=== PATIENT | male | born 1940 | race Caucasian/White ===

== ENCOUNTER 2023-11-29 14:21 | Emergency (ER) | payer MEDICARE, OTHER, SELFPAY ==
[2023-11-29 14:24] VITALS: BP 159/96
--- NOTE | 2023-11-29 15:01 | ED.GENMED ---
History of Present Illness
General
Chief Complaint: Eye Problems
Source: patient and spouse
Exam Limitations: none
Time Seen by Provider: 11/29/23 14:32
Nursing documentation reviewed up to this point in time: agreed with
Travel History
Have you had any contact with someone who has COVID-19?: No
Do you have any symptoms of coronavirus? Fever > 100 degrees, chills, cough, shortness of breath, sore throat, loss of taste or smell, muscle aches, or headache?: No
History of Present Illness
History of Present Illness:
83 yr old male presents to the ED for evaluation. Pt has history of htn, mi cardiac stents , reflux,hypothyroidism b/l cataract surgery, known right eye retinal occlusion. pt reports he was sent by Dr. Camacho of [facility] .
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 He is seen by her every 10 to 12 weeks for injections.
He reports that the past 2 weeks he has noticed that his right eyelid has been droopy and his vision has been slightly off from his right eye. He was sent to the ER for evaluation. At times he does see double . He denies any upper extremity
numbness Tingling weakness.. He does not Necessarily feel headache but does feel slight discomfort in the right side of his.
I did speak with admitting interviewer who was concerned about 3rd nerve palsy. She was unable to assess the response of his pupils because his pupils were already upon arriving to the ER.
Past History
Past History
ED Past Medical History: CAD, GERD and Other (Kidney stones)
ED Past Surgical History: Other
Social History
Tobacco: Non-smoker
Alcohol: None
Drug: None
Personal:
Living: with family
Employment: Retired
Family History
Family History: Diabetes
Phy Exam
General Physical Exam
General Presentation: no apparent distress
General age: appears stated age
General Skin: warm and dry
General Habitus: normal
General Mental: alert
General Hydration: appears well hydrated
Eye Exam
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
Able to obtain acuity?: Yes
Cardiovascular Exam
Cardiovascular Exam: regular rate/rhythm and normal peripheral pulses
Pulmonary Exam
Pulmonary Exam: lungs clear and no respiratory distress
Neurological Exam
Neurological Exam: alert, oriented x3, no motor deficits, no sensory deficits and speech normal
Musculoskeletal Exam
Musculoskeletal Exam: full ROM
Skin Exam
Skin Exam: normal color and warm/dry
Psychiatric Exam
Psychiatric Exam: normal mood/affect
Course
Orders/Labs/Results
Orders:
Orders
11/29/23 15:12
IV Insert/Care/Rem.- Treatment PRN
11/29/23 15:17
Visual Acuity- Treatment ONCE
11/29/23 15:26
MRI Brain [MR Brain Without Contrast] Urgent
Comment:
Reason For Exam: 3rd nerve palsy
OK for patient to be off Cardiac Monitoring for MRI: Yes
Recent pill cam endoscopy?: No
11/29/23 15:28
[place] [facility] [[place] [facility]] Urgent
Comment:
Reason For Exam: right eye 3rd palsy
OK for patient to be off Cardiac Monitoring for MRI: Yes
Recent pill cam endoscopy?: No
11/29/23 16:39
Complete Blood Count/With Diff Urgent
Comprehensive Metabolic Panel Urgent
Sed Rate [Erythrocyte Sed Rate] Urgent
11/29/23 17:42
Acetylcholine Receptor Bind Ab [S] Routine
TSH Reflex To Free T4 Routine
11/29/23 18:06
Pyridostigmine [Mestinon] 60 mg PO NOW STA
11/29/23 18:27
Vital Signs- Treatment ONCE
Frequency: Once
11/29/23 18:38
Add On- LAB Urgent
Tests Added?: tsh w/ reflexive t4 and thiamine
11/29/23 22:00
Pyridostigmine [Mestinon] 60 mg PO TID
Abnormal Lab Results
11/29/23
16:39
RBC 4.33 L 10^6/uL
(4.70-6.10)
MCH 33.3 H pg
(27.0-31.0)
Absolute Monos (auto) 0.8 H 10^3/uL
(0.1-0.6)
Lymphocytes % 16.3 L %
(20.5-51.1)
Monocytes % 9.6 H %
(1.7-9.3)
ESR 24 H mm/hour
(0-20)
BUN 29 H mg/dl
(9-20)
Creatinine 1.4 H mg/dL
(0.7-1.3)
Glucose 127 H mg/dl
(70-99)
11/29/23 16:39
11/29/23 16:39
Vital Signs
Initial and Last Documented VS:
Initial Vital Signs
Temp Pulse Resp BP Pulse Ox
98.0 F 76 16 159/96 98
11/29/23 14:24 11/29/23 14:24 11/29/23 14:24 11/29/23 14:24 11/29/23 14:24
Last Documented Vital Signs
Temp Pulse Resp BP Pulse Ox
98.0 F 76 16 148/75 96
11/29/23 14:24 11/29/23 14:24 11/29/23 14:24 11/29/23 18:00 11/29/23 18:15
Chemical Process Analyst consulted with Physician
Chemical Process Analyst consulted with physician?: Yes
Name of Physician Consulted: vinny
MDM/Problems Addressed
Differential Diagnosis Includes:
Not limited to aneurysm stroke
MDM/Problems Addressed:
83 yr .old male was sent to the ER for evaluation of palsy of his right eye. He was sent by his retina specialist. He does have no retinal occlusion but on exam he was found to have a palsy of his right eye. He also noted specifically right
eyelid drooping. No other abnormalities/neurological deficits on exam. Patient denies any headache. His speech is clear.patient has history of chronic I did speak with his extension service specialist who sent him in. She wanted to rule out
aneurysm. I spoke with neurology on-call Dr. Kwong, MRI recommended
MR of the [place] negative for high-grade stenosis or occlusion no evidence for cerebral aneurysm, brain MRI negative. Patient was eval by neurology who feels the patient likely has probable neuromuscular junction disorder. Patient to be
discharged home as per neurology with no driving to wear eye patch when awake follow-up with neurology in 1 week, Mestinon 60 mg 3 times a d. Patient's labs are at baseline.
All instructions reviewed with patient and spouse
*Radiology
Radiology exam reviewed: radiology read reviewed
*Pulse Oximetry
Patient hypoxic: no
*Critical Care Note
Total Time (30-74mins, 75-104mins- exclusive of procedures): Not Applicable
ED Attending Note
-
Portions of this chart may have been created with voice recognition software.� Occasional wrong word or��sound alike� substitutions may have occurred due to the inherent limitations of voice recognition software.
Discharge Plan
Departure
Patient Disposition: Home (Routine Discharge)
Date of Disposition: 11/29/23
Time of Disposition: 18:27
Patient with high blood pressure during this ER visit?: Yes
Condition: Fair
Covid-19: Not Applicable
Discharge Problem:
visual deficit
Instructions: BLOOD PRESSURE
Prescriptions:
New
pyridostigmine bromide [Mestinon] 60 mg tablet
60 mg PO TID Qty: 90 0RF
No Action
atorvastatin 40 MG tablet
80 mg PO QPM
aspirin 81 MG tablet,delayed release (DR/EC)
81 mg PO DAILY
losartan 25 MG tablet
25 mg PO DAILY
cholecalciferol (vitamin D3) 1,000 UNIT capsule
1,000 unit PO DAILY
fish oil-dha-epa 1 EACH capsule
2 ea PO DAILY
Lumigan 5 ML drops
1 drp BOTH EYES HS
ibuprofen [Advil Liqui-Gel] 200 MG capsule
200 mg PO Q6H PRN (Reason: MILD PAIN)
nitroglycerin 0.4 MG tablet, sublingual
0.4 mg sublingual [id number] PRN (Reason: chest pain)
brimonidine [Alphagan P] 1 DROP drops
1 drp BOTH EYES BID
PreserVision AREDS-2 1 EACH capsule
1 ea PO DAILY
levothyroxine [Synthroid] 150 mcg tablet
150 mcg PO DAILY
timolol maleate 0.5 % drops
1 drp BOTH EYES DAILY
hydrochlorothiazide 12.5 mg tablet
12.5 mg PO DAILY
GenTeal Tears Mild 0.1-0.3 % Drops
1 drp ophthalmic (eye) .8/D PRN (Reason: DRY EYES)
Rhopressa 0.02 % drops
1 drp BOTH EYES HS
clopidogrel 75 mg Tablet
75 mg PO DAILY Qty: 90 5RF
pantoprazole 40 mg Tablet,Delayed Release (Dr/Ec)
40 mg PO DAILY Qty: 90 5RF
metoprolol succinate 25 mg Tablet Extended Release 24 Hr
12.5 mg PO QPM Qty: 90 5RF
Referrals:
Susannah Kwong MD [Active] -
Parish Marcos MD [Family Provider] -
Activity Restrictions/Additional Instructions:
You were seen here today for visual deficit. As discussed please take Mestinon 60 mg 3 times daily. This medication was sent to pharmacy. no driving
use eye patch when awake. Please obtain medical records from ophthalmology office for neurology. Follow-up with neurology in 1 week
Return if any worsening of symptoms
Interventions
Interventions:
*Risk Screen - Suicide Last Done: 11/29/23 16:00
*General Assessment Last Done: 11/29/23 16:00
*Neglect/Abuse Screening Last Done: 11/29/23 16:00
*ED COVID-19 Vaccine History Last Done: 11/29/23 14:24
[2023-11-29 16:44] VITALS: BP 150/90
[2023-11-29 16:56] LABS: % Basophils 0.6 % (0-2); % Eosinophils 1.1 % (0-6); % Immature Granulocytes 0.4 % (0-0.5); % Lymphocytes 16.3 % (20.5-51.1); % Monocytes 9.6 % (1.7-9.3); Absolute Basophils 0.1 10^3/uL (0-0.2); Absolute Eosinophils 0.1 10^3/uL (0-0.7); Absolute Lymphocytes 1.3 10^3/uL (1.2-3.4); Absolute Monocytes 0.8 10^3/uL (0.1-0.6); Absolute Neutrophils 5.7 10^3/uL (1.4-6.5); Hematocrit 40.7 % (39.0-52.0); Hemoglobin 14.4 g/dL (13.0-18.0); Mean Corp Hgb Conc. 35.4 g/dL (33.0-37.0); Mean Corpuscular Hgb 33.3 pg (27.0-31.0); Mean Platelet Volume 9.6 fL (7.4-10.4); Nucleated Red Blood Cells % 0 % (-); Platelet Count 252 10^3/uL (130-400); Red Blood Cell Count 4.33 10^6/uL (4.70-6.10); Red Cell Dist. Width 13.1 % (11.5-14.5)
[2023-11-29 17:00] VITALS: BP 141/66
[2023-11-29 17:01] LABS: Erythrocyte Sed Rate 24 mm/hour (0-20)
[2023-11-29 17:07] LABS: ALT (SGPT) 23 U/L (0-50); AST (SGOT) 29 U/L (17-59); Albumin 4.4 g/dl (3.5-5.0); Alkaline Phosphatase 80 U/L (38-126); Blood Urea Nitrogen 29 mg/dl (9-20); Calcium 9.7 mg/dl (8.4-10.2); Carbon Dioxide 28 mmol/L (22-30); Chloride 102 mmol/L (98-107); Glucose 127 mg/dl (70-99); Potassium 4.5 mmol/L (3.5-5.1); Sodium 136 mmol/L (135-145); Total Protein 7.1 g/dl (6.3-8.2); eGFR 50.49
--- NOTE | 2023-11-29 17:20 | CON.NEURO ---
Consultation
Order
Date of Consultation: 11/29/23
Reason for Consult: Diplopia
CC: none
HPI: This is an 83-year-old man who presented to [facility] on 11/29/2023 with change in vision. According to the patient he developed painless binocular horizontal diplopia worse with left lateral gaze around 1 week ago. He states
that he has had right ptosis for 'long time'. No reports of dysarthria, dysphagia, dyspnea, facial numbness change in taste or vertigo.
ER VS: 159/96, 76, afebrile
Brain MRI�no acute infarcts
Head MRI�no evidence of aneurysms
Labs: Creatinine�1.4, glucose�124, normal WBC
PMH: 'Retinal occlusion ', CAD, HTN, DLP, hypothyroidism, glaucoma
PSH: Bilateral cataract surgery, eye stent
SH:former smoker, ; violinist
FH: No family history of tremor
All: Lisinopril, doxycycline,
ROS:Constitutional: Negative. Negative for chills, fever and unexpected weight change.
HENT: Negative for ear pain, hearing loss, tinnitus and trouble swallowing.
Eyes: Positive for impaired vision
Respiratory: Negative for cough, choking and shortness of breath.
Cardiovascular: Negative for chest pain, palpitations and leg swelling.
Gastrointestinal: Negative for abdominal pain and vomiting.
Endocrine: Negative. Negative for cold intolerance.
Genitourinary: Negative for dysuria, flank pain and urgency.
Musculoskeletal: Negative for back pain, gait problem, neck pain and neck stiffness.
Skin: Negative for rash.
Allergic/Immunologic: Negative. Negative for immunocompromised state.
Neurological: Positive for diplopia
Psychiatric/Behavioral: Negative for behavioral problems, confusion and hallucinations.
General: Well developed. In no acute distress.
Cardio: Regular rate and rhythm without murmur. Extremities are without cyanosis or edema.
Neuro:
Mental Status: Alert, oriented to person, place, and date. Normal attention and recall. Good fund of knowledge. Follows complex requests across the midline. Comprehension, naming, and repetition intact. Immediate and delayed recall 3/.
Cranial Nerves: .Pupils 6 mm, nonreactive(was dilatated earlier today at the move coordinator visit). EOMs full. Visual osorio full to confrontation. R ptosis(and eyelid edema). Horizontal diplopia at distance, on the left greater than right
lateral gaze. V1-V3 intact to light touch and pinprick bilaterally, symmetric. Face symmetric. Impaired hearing AU. The palate elevated well. SCMs and traps 5/5. Tongue midline. No dysarthria.
Motor: Normal bulk and tone. No pronator or arm drift. Strength 5/5 throughout. No clonus.
Reflexes: 2+ throughout the upper extremities and 2 +knees. Plantar responses flexor bilaterally.
Sensory: Reduced vibration at the toes
Coordination: Mild action hand tremor. No dysmetria
Gait: deferred
Assessment and Plan:
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
II. Distal symmetric polyneuropathy
III. HTN
-No driving
-Apply eye patch
-Please check TFTs, MG panel, thiamine, SPEP/IF
-Outpatient NCS/EMG(single-fiber EMG)
-Mestinon 60 mg 3 times daily
-Please obtain medical records from ophthalmology office
-Outpatient neurology follow-up in 1 week.
I personally reviewed all radiology and labs along with past medical records pertinent to current medical problems. Total time spent-60 minutes.
Thank you for allowing us to participate in the care of this patient. Please do not hesitate to contact us with any questions or concerns.
Subjective/Objective
Subjective Data
Date of Service: November 29, 2023
Objective Data
Vital Signs
Temp Pulse Resp BP Pulse Ox
36.7 C 76 16 159/96 98
11/29/23 14:24 02/15/24 14:24 11/29/23 14:24 11/29/23 14:24 11/29/23 14:24
Lab Results
11/29/23 16:39
11/29/23 16:39
Sodium 136 mmol/L (135-145) 11/29/23 16:39
Potassium 4.5 mmol/L (3.5-5.1) 11/29/23 16:39
BUN 29 mg/dl (9-20) H 11/29/23 16:39
Glucose 127 mg/dl (70-99) H 11/29/23 16:39
Calcium 9.7 mg/dl (8.4-10.2) 11/29/23 16:39
Patient Allergies
doxycycline Allergy (Verified 11/29/23 14:27)
Unknown
Medications
-
Home Medications
Medication Instructions Recorded
aspirin 81 mg tablet,delayed 81 mg PO DAILY Blood clot 03/08/14
release prevention/tx
atorvastatin 40 mg tablet 80 mg PO QPM High cholesterol 03/08/14
bimatoprost 0.01 % eye drops 1 drp BOTH EYES HS Eye condition 03/08/14
(Lumigan)
cholecalciferol (vitamin D3) 25 1,000 unit PO DAILY Supplement 03/08/14
mcg (1,000 unit) capsule
fish oil-dha-epa 1,200 mg-144 2 ea PO DAILY Supplement 03/08/14
mg-216 mg capsule
losartan 25 mg tablet 25 mg PO DAILY Blood pressure 03/08/14
brimonidine 0.15 % eye drops 1 drp BOTH EYES BID Eye condition 11/14/17
(Alphagan P)
ibuprofen 200 mg capsule (Advil 200 mg PO Q6H PRN MILD PAIN 11/14/17
Liqui-Gel)
nitroglycerin 0.4 mg sublingual 0.4 mg sublingual [id number] PRN 11/14/17
tablet chest pain
vit C 250 mg-vit E 90 mg-zinc 40 1 ea PO DAILY Supplement 11/14/17
mg-copper 1 [id number]
capsule (PreserVision AREDS-2)
dextran 70-hypromellose 0.1 %-0.3 1 drp ophthalmic (eye) .8/D PRN 08/03/22
% eye drops (GenTeal Tears Mild) DRY EYES
hydrochlorothiazide 12.5 mg tablet 12.5 mg PO DAILY Blood pressure 08/03/22
levothyroxine 150 mcg tablet 150 mcg PO DAILY Thyroid 08/03/22
(Synthroid)
netarsudil 0.02 % eye drops 1 drp BOTH EYES HS Eye condition 08/03/22
(Rhopressa)
timolol maleate 0.5 % eye drops 1 drp BOTH EYES DAILY Eye condition 08/03/22
clopidogrel 75 mg tablet 75 mg PO DAILY #90 tabs 08/04/22
metoprolol succinate 25 mg 12.5 mg PO QPM #90 tabs 08/04/22
tablet,extended release 24 hr
pantoprazole 40 mg tablet,delayed 40 mg PO DAILY #90 tabs 08/04/22
release
Vital Signs and Labs
-
Vital Signs and Labs:
Vital Signs
Temp Pulse Resp BP Pulse Ox
36.7 C 76 16 159/96 98
11/29/23 14:24 11/29/23 14:24 11/29/23 14:24 11/29/23 14:24 11/29/23 14:24
Lab Results
11/29/23 16:39
11/29/23 16:39
Sodium 136 mmol/L (135-145) 11/29/23 16:39
Potassium 4.5 mmol/L (3.5-5.1) 11/29/23 16:39
BUN 29 mg/dl (9-20) H 11/29/23 16:39
Glucose 127 mg/dl (70-99) H 11/29/23 16:39
Calcium 9.7 mg/dl (8.4-10.2) 11/29/23 16:39
Home Medications
-
Home Medications
aspirin 81 mg tablet,delayed release 81 mg PO DAILY Blood clot prevention/tx 03/08/14
atorvastatin 40 mg tablet 80 mg PO QPM High cholesterol 03/08/14
bimatoprost 0.01 % eye drops (Lumigan) 1 drp BOTH EYES HS Eye condition 03/08/14
cholecalciferol (vitamin D3) 25 mcg (1,000 unit) capsule 1,000 unit PO DAILY Supplement 03/08/14
fish oil-dha-epa 1,200 mg-144 mg-216 mg capsule 2 ea PO DAILY Supplement 03/08/14
losartan 25 mg tablet 25 mg PO DAILY Blood pressure 03/08/14
brimonidine 0.15 % eye drops (Alphagan P) 1 drp BOTH EYES BID Eye condition 11/14/17
ibuprofen 200 mg capsule (Advil Liqui-Gel) 200 mg PO Q6H PRN MILD PAIN 11/14/17
nitroglycerin 0.4 mg sublingual tablet 0.4 mg sublingual [id number] PRN chest pain 11/14/17
vit C 250 mg-vit E 90 mg-zinc 40 mg-copper 1 [id number] capsule (PreserVision AREDS-2) 1 ea PO DAILY Supplement 11/14/17
dextran 70-hypromellose 0.1 %-0.3 % eye drops (GenTeal Tears Mild) 1 drp ophthalmic (eye) .8/D PRN DRY EYES 08/03/22
hydrochlorothiazide 12.5 mg tablet 12.5 mg PO DAILY Blood pressure 08/03/22
levothyroxine 150 mcg tablet (Synthroid) 150 mcg PO DAILY Thyroid 08/03/22
netarsudil 0.02 % eye drops (Rhopressa) 1 drp BOTH EYES HS Eye condition 08/03/22
timolol maleate 0.5 % eye drops 1 drp BOTH EYES DAILY Eye condition 08/03/22
clopidogrel 75 mg tablet 75 mg PO DAILY #90 tabs 08/04/22
metoprolol succinate 25 mg tablet,extended release 24 hr 12.5 mg PO QPM #90 tabs 08/04/22
pantoprazole 40 mg tablet,delayed release 40 mg PO DAILY #90 tabs 08/04/22
Medications
-
Medications:
Generic Name Dose Route Start Last Admin
Trade Name Freq PRN Reason Stop Dose Admin
Pyridostigmine [place] 60 mg 11/29/23 22:00
Pyridostigmine 60 Mg Tablet PO 12/27/23 21:59
TID RICH
[2023-11-29 18:00] VITALS: BP 148/75
[2023-11-29] MEDS: MESTINON 60 MG PO (18:39)
[2023-11-29 18:50] LABS: TSH Reflex To Free T4 0.82 uIU/ml (0.47-4.68)
== END 2023-11-29 19:05 | disposition home or self-care (01) ==
LOC: EMR 14:21
PROVIDERS: Nurse Practitioner; EMERGENCY PHYSICIAN Emergency Medicine; FAMILY PHYSICIAN Family Medicine; OTHER PHYSICIAN Psychiatry & Neurology Neurology
DX: H53.40 Unspecified visual field defects (principal); I10 Essential (primary) hypertension
CPT/HCPCS: 99284; 70544; 70551; 80053; 84443; 85025; 85652; 86041

== ENCOUNTER 2024-02-02 05:34 | Emergency (ER) | payer MEDICARE, OTHER, SELFPAY ==
[2024-02-02 05:39] VITALS: BP 173/93
[2024-02-02] MEDS: TORADOL 15 MG IV (06:41)
[2024-02-02 07:02] LABS: % Basophils 0.5 % (0-2); % Eosinophils 2.5 % (0-6); % Immature Granulocytes 0.4 % (0-0.5); % Lymphocytes 12.5 % (20.5-51.1); % Monocytes 11.7 % (1.7-9.3); % Neutrophils 72.4 % (42.2-75.2); Absolute Basophils 0.1 10^3/uL (0-0.2); Absolute Eosinophils 0.2 10^3/uL (0-0.7); Absolute Lymphocytes 1.2 10^3/uL (1.2-3.4); Absolute Monocytes 1.1 10^3/uL (0.1-0.6); Hematocrit 40.5 % (39.0-52.0); Hemoglobin 13.8 g/dL (13.0-18.0); Mean Corp Hgb Conc. 34.1 g/dL (33.0-37.0); Mean Corpuscular Hgb 33.3 pg (27.0-31.0); Mean Corpuscular Volume 97.8 fL (80.0-94.0); Mean Platelet Volume 9.6 fL (7.4-10.4); Nucleated Red Blood Cells % 0 % (-); Platelet Count 270 10^3/uL (130-400); Red Blood Cell Count 4.14 10^6/uL (4.70-6.10); Red Cell Dist. Width 13.1 % (11.5-14.5); White Blood Cell Count 9.7 10^3/uL (4.8-10.8)
[2024-02-02 07:13] LABS: ALT (SGPT) 19 U/L (0-50); AST (SGOT) 25 U/L (17-59); Albumin 4.4 g/dl (3.5-5.0); Alkaline Phosphatase 94 U/L (38-126); Blood Urea Nitrogen 31 mg/dl (9-20); Calcium 9.6 mg/dl (8.4-10.2); Carbon Dioxide 27 mmol/L (22-30); Chloride 105 mmol/L (98-107); Glucose 127 mg/dl (70-99); Potassium 4.4 mmol/L (3.5-5.1); Sodium 137 mmol/L (135-145); Total Bilirubin 0.5 mg/dl (0.2-1.3); Total Protein 7.3 g/dl (6.3-8.2); Uric Acid 6.8 mg/dl (3.5-8.5); eGFR > 60.00
[2024-02-02 07:24] LABS: Erythrocyte Sed Rate 30 mm/hour (0-20)
--- NOTE | 2024-02-02 07:24 | ED.GENMED ---
History of Present Illness
General
Chief Complaint: Musculo-Skeletal Complaint
Source: patient and records
Exam Limitations: none
Time Seen by Provider: 02/02/24 06:07
Nursing documentation reviewed up to this point in time: agreed with
Travel History
Have you had any contact with someone who has COVID-19?: No
Do you have any symptoms of coronavirus? Fever > 100 degrees, chills, cough, shortness of breath, sore throat, loss of taste or smell, muscle aches, or headache?: No
History of Present Illness
History of Present Illness:
Patient is an 83-year-old male who presents to the emergency department complaining of left great toe redness and increasing pain as well as swelling for the past few days. Patient denies any trauma. Patient denies any wounds, fever or chills.
Patient denies any previous history of similar episodes. Patient is on hydrochlorothiazide. Patient denies any history of gout or pseudogout.
Past History
Past History
ED Past Medical History: CAD, GERD, HTN, Hypercholesterolemia, Hypothyroidism and Other (Kidney stones)
ED Past Surgical History: Other
Social History
Tobacco: Non-smoker
Alcohol: None
Drug: None
Personal:
Living: with family
Employment: Retired
Family History
Family History: Diabetes
Review of Systems
Review of Systems
All Other Systems: Not applicable
Constitutional: Denies fever or chills
Musculoskeletal: Reports joint pain (Left great toe)
Skin: Reports other (Read left foot)
Hematologic/Lymphatic: Denies bruising
Phy Exam
Physical Exam
Physical Exam:
Physical Exam
General: mild distress, alert and appropriate, well nourished, well hydrated
HENT: Normocephalic, supple
Eyes: Clear sclera, conjuctiva without injection
Heart: Regular rhythm and rate. No S3, S4. No murmur.
Lungs: No respiratory distress, no stridor, lung sounds clear and equal bilaterallyder
Abdomen: Soft, nontender
Neuro: Alert and oriented x 3, CN II - XII intact, no motor focality, no cerebellar dysfunction
Skin: no rash
Psychiatric: well kept. interactive and cooperative
Extremities: No edema, cyanosis. Left foot on the dorsi flexor surface is swollen and erythematous greatest about the first MTP joint and tender to palpation. Neurovascularly tendons intact
Scores
Heart Failure Risk
Heart Failure Risk Score: Not Applicable
Heart Score for Chest Pain Patients
STEMI patient?: Not applicable
Withdrawal Assessment of Alcohol
Withdrawal Assessment Completed?: Not applicable
Course
Orders/Labs/Results
Orders:
Orders
02/02/24 05:47
Foot, Left 3 View [CR Foot - Left Min 3 Views] Urgent
Comment: great toe to distal metatarsals
Reason For Exam: redness, swelling and pain
02/02/24 06:30
Complete Blood Count/With Diff Urgent
Comprehensive Metabolic Panel Urgent
Sed Rate [Erythrocyte Sed Rate] Urgent
Uric Acid Urgent
Ketorolac [Toradol] 15 mg IV NOW STA
02/02/24 08:39
Dexamethasone Sod Phosphate [Decadron] 10 mg IV NOW STA
HYDROmorphone [Dilaudid] 0.5 mg IV NOW STA
Ondansetron Injectable [Zofran] 4 mg IV NOW STA
Abnormal Lab Results
02/02/24
06:30
RBC 4.14 L 10^6/uL
(4.70-6.10)
MCV 97.8 H fL
(80.0-94.0)
MCH 33.3 H pg
(27.0-31.0)
Absolute Neuts (auto) 7.0 H 10^3/uL
(1.4-6.5)
Absolute Monos (auto) 1.1 H 10^3/uL
(0.1-0.6)
Lymphocytes % 12.5 L %
(20.5-51.1)
Monocytes % 11.7 H %
(1.7-9.3)
ESR 30 H mm/hour
(0-20)
BUN 31 H mg/dl
(9-20)
Glucose 127 H mg/dl
(70-99)
02/02/24 06:30
02/02/24 06:30
Vital Signs
Initial and Last Documented VS:
Initial Vital Signs
Temp Pulse Resp BP Pulse Ox
98.5 F 68 18 173/93 97
02/02/24 05:39 02/02/24 05:39 02/02/24 05:39 02/02/24 05:39 02/02/24 05:39
Last Documented Vital Signs
Temp Pulse Resp BP Pulse Ox
98.5 F 68 18 173/93 97
02/02/24 05:39 02/02/24 05:39 02/02/24 05:39 02/02/24 05:39 02/02/24 05:39
*Radiology
Radiology exam reviewed: preliminary read by ED provider (Unremarkable x-ray)
*Pulse Oximetry
Patient hypoxic: yes
*EKG
Interpreted by ED Provider?: NA
*Learning And Development Manager Interpretation
Rate: Learning And Development Manager- N/A
*Critical Care Note
Total Time (30-74mins, 75-104mins- exclusive of procedures): Not Applicable
Update Note
Update Note:
Patient appears to have gout. Although the uric acid is normal the sed rate is elevated. Patient had no relief with the Toradol so we will start on short course of steroids. Patient's blood sugar is elevated here and obviously that is a concern
we will have the patient follow-up with his physician in a few days.
ED Attending Note
-
Portions of this chart may have been created with voice recognition software.� Occasional wrong word or��sound alike� substitutions may have occurred due to the inherent limitations of voice recognition software.
Discharge Plan
Departure
Patient Disposition: Home (Routine Discharge)
Date of Disposition: 02/02/24
Time of Disposition: 08:42
Patient with high blood pressure during this ER visit?: Yes
Condition: Fair
Covid-19: Not Applicable
Discharge Problem:
Acute gouty arthritis
Instructions: Gout (DC), Low Purine Diet, BLOOD PRESSURE, RICE Therapy
Prescriptions:
New
prednisone 50 mg Tablet
50 mg PO DAILY Qty: 5 0RF
oxycodone 5 mg tablet
5 mg PO Q4H PRN (Reason: Pain) Qty: 14 0RF
No Action
atorvastatin 40 MG tablet
80 mg PO QPM
aspirin 81 MG tablet,delayed release (DR/EC)
81 mg PO DAILY
losartan 25 MG tablet
25 mg PO DAILY
cholecalciferol (vitamin D3) 1,000 UNIT capsule
1,000 unit PO DAILY
fish oil-dha-epa 1 EACH capsule
2 ea PO DAILY
Lumigan 5 ML drops
1 drp BOTH EYES HS
ibuprofen [Advil Liqui-Gel] 200 MG capsule
200 mg PO Q6H PRN (Reason: MILD PAIN)
nitroglycerin 0.4 MG tablet, sublingual
0.4 mg sublingual [id number] PRN (Reason: chest pain)
brimonidine [Alphagan P] 1 DROP drops
1 drp BOTH EYES BID
PreserVision AREDS-2 1 EACH capsule
1 ea PO DAILY
levothyroxine [Synthroid] 150 mcg tablet
150 mcg PO DAILY
timolol maleate 0.5 % drops
1 drp BOTH EYES DAILY
hydrochlorothiazide 12.5 mg tablet
12.5 mg PO DAILY
GenTeal Tears Mild 0.1-0.3 % Drops
1 drp ophthalmic (eye) .8/D PRN (Reason: DRY EYES)
Rhopressa 0.02 % drops
1 drp BOTH EYES HS
clopidogrel 75 mg Tablet
75 mg PO DAILY Qty: 90 5RF
pantoprazole 40 mg Tablet,Delayed Release (Dr/Ec)
40 mg PO DAILY Qty: 90 5RF
metoprolol succinate 25 mg Tablet Extended Release 24 Hr
12.5 mg PO QPM Qty: 90 5RF
pyridostigmine bromide [Mestinon] 60 mg tablet
60 mg PO TID Qty: 90 0RF
Referrals:
Parish Marcos MD [Family Provider] - Follow up in 5-7 days
Interventions
Interventions:
*Risk Screen - Suicide Last Done: 02/02/24 05:39
*General Assessment Last Done: 02/02/24 05:39
*Neglect/Abuse Screening Last Done: 02/02/24 05:39
ED- Fall Risk Assessment Last Done: 02/02/24 05:39
*ED COVID-19 Vaccine History Last Done: 02/02/24 05:39
ED-Musculoskeletal Assessment Last Done: 02/02/24 07:07
Discharge Date and Time
Print Language: [id number]
[2024-02-02] MEDS: ZOFRAN 4 MG IV (08:50)
[2024-02-02] MEDS: DILAUDID 0.5 MG IV (08:50)
[2024-02-02] MEDS: DECADRON 10 MG IV (08:50)
[2024-02-02 09:01] VITALS: BP 123/60
[2024-02-02 10:25] VITALS: BP 146/85
== END 2024-02-02 10:38 | disposition home or self-care (01) ==
LOC: EMR 05:34
PROVIDERS: EMERGENCY PHYSICIAN Emergency Medicine; FAMILY PHYSICIAN Family Medicine
DX: M10.9 Gout, unspecified (principal); M79.675 Pain in left toe(s); I10 Essential (primary) hypertension; K21.9 Gastro-esophageal reflux disease without esophagitis; I25.10 Atherosclerotic heart disease of native coronary artery without angina pectoris; E78.00 Pure hypercholesterolemia, unspecified; E03.9 Hypothyroidism, unspecified; M19.90 Unspecified osteoarthritis, unspecified site; H40.9 Unspecified glaucoma; I25.2 Old myocardial infarction; Z95.5 Presence of coronary angioplasty implant and graft; Z79.82 Long term (current) use of aspirin; Z87.442 Personal history of urinary calculi; Z88.1 Allergy status to other antibiotic agents
CPT/HCPCS: 99284; 96374; 96375 ×3; 73630; 80053; 84550; 85025; 85652

== ENCOUNTER → 2024-02-19 09:05 | Outpatient (REF) | payer MEDICARE, OTHER, SELFPAY ==
[2024-02-19 11:20] LABS: Glycohemoglobin (HgbA1c) 7.3 % (4.0-5.6)
[2024-02-19 11:25] LABS: ALT (SGPT) 23 U/L (0-50); AST (SGOT) 26 U/L (17-59); Albumin 3.9 g/dl (3.5-5.0); Alkaline Phosphatase 74 U/L (38-126); Blood Urea Nitrogen 31 mg/dl (9-20); Calcium 9.9 mg/dl (8.4-10.2); Carbon Dioxide 27 mmol/L (22-30); Chloride 104 mmol/L (98-107); Glucose 163 mg/dl (70-99); HDL Cholesterol 39 mg/dl; LDL Cholesterol, Calculated 67 mg/dl; Potassium 4.7 mmol/L (3.5-5.1); Sodium 140 mmol/L (135-145); Total Cholesterol 154 mg/dl (50-199); Total Protein 6.4 g/dl (6.3-8.2); Triglyceride 241 mg/dl (10-149); Very Low Density Lipoprotein 48 mg/dl (0-30); eGFR 50.49
[2024-02-19 11:49] LABS: TSH 1.34 uIU/ml (0.47-4.68)
== END ==
LOC: REG 09:05
PROVIDERS: ATTENDING PHYSICIAN Internal Medicine Endocrinology, Diabetes & Metabolism; FAMILY PHYSICIAN Family Medicine; REFERRING PHYSICIAN Internal Medicine Cardiovascular Disease
DX: E06.3 Autoimmune thyroiditis (principal); E11.65 Type 2 diabetes mellitus with hyperglycemia; E78.5 Hyperlipidemia, unspecified; E03.9 Hypothyroidism, unspecified
CPT/HCPCS: 36415; 80053; 80061; 83036; 84443

== ENCOUNTER 2024-04-13 10:43 | Inpatient (IN) | payer MEDICARE, OTHER, SELFPAY ==
[2024-04-13] VITALS (19 sets, daily range): BP systolic 117–156; BP diastolic 71–107; BMI 28.2
--- NOTE | 2024-04-13 08:40 | ED.GENMED ---
History of Present Illness
General
Chief Complaint: Chest Pain
Source: patient
Exam Limitations: none
Time Seen by Provider: 04/13/24 08:25
History of Present Illness
History of Present Illness:
See MDM
Past History
Past History
ED Past Medical History: CAD, GERD, HTN, Hypercholesterolemia, Hypothyroidism and Other (Kidney stones)
ED Past Surgical History: Other
Social History
Tobacco: Non-smoker
Alcohol: None
Drug: None
Personal:
Living: with family
Employment: Retired
Family History
Family History: Diabetes
Phy Exam
Physical Exam
Physical Exam:
See MDM
Scores
Heart Score for Chest Pain Patients
STEMI patient?: Yes
Course
Orders/Labs/Results
Orders:
Orders
04/13/24 08:25
Complete Blood Count/With Diff Urgent
04/13/24 08:26
EKG [Electrocardiogram (*1)] Urgent
Reason for Study: Chest Pain
EKG- Treatment ONCE
Comprehensive Metabolic Panel Urgent
Magnesium Urgent
PTT Urgent
Prothrombin Time Urgent
Troponin I Urgent
04/13/24 08:37
Nitroglycerin Sublingual [Nitrostat (Sublingual)] 0.4 mg SL [id number] PRN
04/13/24 08:40
TSH Reflex To Free T4 Urgent
Vital Signs
Initial and Last Documented VS:
Initial Vital Signs
Temp Pulse Resp BP Pulse Ox
97.9 F 79 17 143/92 96
04/13/24 08:27 04/13/24 08:27 04/13/24 08:27 04/13/24 08:27 04/13/24 08:27
Last Documented Vital Signs
Temp Pulse Resp BP Pulse Ox
97.9 F 79 17 143/92 96
04/13/24 08:27 04/13/24 08:27 04/13/24 08:27 04/13/24 08:27 04/13/24 08:27
MDM/Problems Addressed
Differential Diagnosis Includes:
HPI and MDM Narrative:
83-year-old male presenting for evaluation of chest pain that started around 7 AM. Patient took 4 baby aspirin and nitroglycerin. EMS arrived and provided more nitroglycerin. With nitroglycerin, pain is improving but patient still having mild
chest pain. This was preceded by a week of palpitations. On arrival, patient found to be in new onset A-fib. He is not on blood thinners. Patient has a prior history of coronary artery disease with multiple stents. EKG done immediately on
arrival which does show ST elevation anteriorly. No significant reciprocal changes. I immediately took the EKG and compared to an old one which does not show significant anterior changes. Case was discussed with cardiology immediately
Physical exam
General: Well appearing and non-toxic
HEENT: protecting airway
Neck: appears supple
CV: No evidence of cyanosis. Regular rate, irregular rhythm
Resp: No accessory muscle use
Abd: Non-distended
Extremities: No deformities
Neuro: alert
Psych: Normal affect
Skin: Intact
Problems Addressed including Acute and Chronic Conditions affecting care:
1. STEMI
Acuity: acute
Prognosis: unstable
Details: Given his prior history and the new EKG changes with active chest pain, STEMI alert was called after discussion with cardiology. Patient already took aspirin. Will load with Brilinta and heparin. Will continue nitroglycerin as needed for
chest pain
Updates
8:42 AM Case discussed with cardiology and it was decided to call STEMI alert. Patient given heparin bolus and Brilinta. Patient already took 4 baby aspirin at home
Differential Diagnosis (but not limited to): STEMI, new onset A-fib, noncardiac chest pain
Testing considered: Chest x-ray
Drug therapy (if applicable): OTC meds, please see d/c instruction regarding Rx drugs
Amount and/or Complexity of Data Reviewed
Clinical info obtained from: Patient
External data reviewed: Cath report in 2021 indicating widely patent LAD stent
Labs I independently reviewed (but not limited to): [ ]
Radiology: N/A
Pulse Ox: not hypoxic
EKG independently reviewed: A-fib, normal axis, significant ST elevation anteriorly
[employer] [place]: A-fib
Critical Care: The high probability of a clinically significant, sudden or life threatening deterioration of the cardiovascular system(s) required my full and direct attention, intervention and personal management. The aggregate critical care time
was 25 minutes. This time is in addition to time spent performing reported procedures but includes the following:
[x] Data Review and interpretation
[x] Patient assessment and monitoring of vital signs
[x] Documentation
[x] Medication orders and management
Risk of Complication:
Social Determinants of health: Good social support
Discussed with other providers: N/A
Escalation of Care includes Admit/Obs: After being observed in the Emergency Department, pt stable for discharge.
Occasional wrong word or 'sound a like' substitutions may have occurred due to the inherent limitations of voice recognition software. Read the chart carefully and recognize, using context, where substitutions have occurred.
*Critical Care Note
Total Time (30-74mins, 75-104mins- exclusive of procedures): 25 min
ED Attending Note
-
Portions of this chart may have been created with voice recognition software.� Occasional wrong word or��sound alike� substitutions may have occurred due to the inherent limitations of voice recognition software.
Discharge Plan
Departure
Patient Disposition: LABORATORY CHIEF
Date of Disposition: 04/13/24
Time of Disposition: 08:47
Admit to: laboratory apparatus glass blower
Presentation/result/management discussed w/ accepting MD/DO: Cardiology
Discharge Problem:
ST elevation (STEMI) myocardial infarction, New onset a-fib
Prescriptions:
No Action
atorvastatin 40 MG tablet
80 mg PO QPM
aspirin 81 MG tablet,delayed release (DR/EC)
81 mg PO DAILY
losartan 25 MG tablet
25 mg PO DAILY
cholecalciferol (vitamin D3) 1,000 UNIT capsule
1,000 unit PO DAILY
fish oil-dha-epa 1 EACH capsule
2 ea PO DAILY
Lumigan 5 ML drops
1 drp BOTH EYES HS
ibuprofen [Advil Liqui-Gel] 200 MG capsule
200 mg PO Q6H PRN (Reason: MILD PAIN)
nitroglycerin 0.4 MG tablet, sublingual
0.4 mg sublingual [id number] PRN (Reason: chest pain)
brimonidine [Alphagan P] 1 DROP drops
1 drp BOTH EYES BID
PreserVision AREDS-2 1 EACH capsule
1 ea PO DAILY
levothyroxine [Synthroid] 150 mcg tablet
150 mcg PO DAILY
timolol maleate 0.5 % drops
1 drp BOTH EYES DAILY
hydrochlorothiazide 12.5 mg tablet
12.5 mg PO DAILY
GenTeal Tears Mild 0.1-0.3 % Drops
1 drp ophthalmic (eye) .8/D PRN (Reason: DRY EYES)
Rhopressa 0.02 % drops
1 drp BOTH EYES HS
clopidogrel 75 mg Tablet
75 mg PO DAILY Qty: 90 5RF
pantoprazole 40 mg Tablet,Delayed Release (Dr/Ec)
40 mg PO DAILY Qty: 90 5RF
metoprolol succinate 25 mg Tablet Extended Release 24 Hr
12.5 mg PO QPM Qty: 90 5RF
pyridostigmine bromide [Mestinon] 60 mg tablet
60 mg PO TID Qty: 90 0RF
prednisone 50 mg Tablet
50 mg PO DAILY Qty: 5 0RF
oxycodone 5 mg tablet
5 mg PO Q4H PRN (Reason: Pain) Qty: 14 0RF
Interventions
Interventions:
*Risk Screen - Suicide Last Done: 04/13/24 08:32
*General Assessment Last Done: 04/13/24 08:32
*Neglect/Abuse Screening Last Done: 04/13/24 08:32
ED- Fall Risk Assessment Last Done: 04/13/24 08:32
*ED COVID-19 Vaccine History Last Done: 04/13/24 08:32
ED- Cardiac Assessment Last Done: 04/13/24 08:45
Discharge Date and Time
Print Language: TONGAN
[2024-04-13] MEDS: NITROSTAT (SUBLINGUAL) 0.400000000000000022 MG SL (08:42)
[2024-04-13 09:02] LABS: % Basophils 0.7 % (0-2); % Eosinophils 2.8 % (0-6); % Immature Granulocytes 0.5 % (0-0.5); % Lymphocytes 21.3 % (20.5-51.1); % Monocytes 10.3 % (1.7-9.3); % Neutrophils 64.4 % (42.2-75.2); Absolute Basophils 0.1 10^3/uL (0-0.2); Absolute Eosinophils 0.2 10^3/uL (0-0.7); Absolute Lymphocytes 1.8 10^3/uL (1.2-3.4); Absolute Monocytes 0.9 10^3/uL (0.1-0.6); Absolute Neutrophils 5.6 10^3/uL (1.4-6.5); Hematocrit 36.5 % (39.0-52.0); Hemoglobin 12.8 g/dL (13.0-18.0); Mean Corp Hgb Conc. 35.1 g/dL (33.0-37.0); Mean Corpuscular Hgb 33.3 pg (27.0-31.0); Mean Corpuscular Volume 95.1 fL (80.0-94.0); Mean Platelet Volume 9.6 fL (7.4-10.4); Nucleated Red Blood Cells % 0 % (-); Platelet Count 221 10^3/uL (130-400); Red Blood Cell Count 3.84 10^6/uL (4.70-6.10); Red Cell Dist. Width 13.3 % (11.5-14.5); White Blood Cell Count 8.6 10^3/uL (4.8-10.8)
[2024-04-13 09:15] LABS: ALT (SGPT) 18 U/L (0-50); AST (SGOT) 25 U/L (17-59); Albumin 3.8 g/dl (3.5-5.0); Alkaline Phosphatase 74 U/L (38-126); Blood Urea Nitrogen 27 mg/dl (9-20); Calcium 9.5 mg/dl (8.4-10.2); Carbon Dioxide 26 mmol/L (22-30); Chloride 106 mmol/L (98-107); Estimated Creatinine Clearance 53 ml/min; Glucose 170 mg/dl (70-99); INR 1.02; Magnesium 1.8 mg/dl (1.6-2.3); PT 13.3 Sec (11.4-14.6); Potassium 4.3 mmol/L (3.5-5.1); Sodium 140 mmol/L (135-145); Total Bilirubin 0.9 mg/dl (0.2-1.3); Total Protein 6.1 g/dl (6.3-8.2); eGFR > 60.00
[2024-04-13 09:16] LABS: APTT 23.6 Sec (23.4-35.0)
[2024-04-13 09:38] LABS: ACT-LR - POC 208 Seconds (116-155)
[2024-04-13 09:47] LABS: ACT-LR - POC 334 Seconds (116-155)
[2024-04-13 10:13] LABS: ACT-LR - POC 252 Seconds (116-155)
--- NOTE | 2024-04-13 10:18 | ITS.CL.CATH ---
Aeronautical Design Engineer - Catheterization
Cardiac Catheterization
Procedure Report:
LEFT HEART CATH AND CORONARY INTERVENTION
Date of Procedure: April 13, 2024
Referring: [facility] Emergency Department: STEMI alert
PROCEDURES:
1. Left heart catheterization with coronary and single-plane left ventriculography
2. Successful stenting of the mid LAD beyond the first diagonal branch within a previously stented segment with placement of a 3.0 x 26 mm Kaveh stent that was implanted at nominal pressures. There was haziness on the distal edge of the stent and a
second 2.75 x 12 mm Kaveh stent was implanted overlapping and distal to the initial stent
INDICATION: This is an 83-year-old gentleman with a prior history of coronary artery disease and prior stenting of the right coronary artery in July 2001 with placement of a three 0.0 x 13 mm tetra stent. He returned in February 2002 and underwent
successful placement of overlapping 3.0 x 9 mm and 3.0 x 15 mm [id number] stents in the proximal to mid LAD jailing a large diagonal branch. He then presented with a non-ST segment elevation myocardial infarction and July 2022 and was found to have a
high-grade stenosis within the previously placed distal RCA stent. The vessel was restented with a 4.0 x 18 mm Xience stent that was postdilated with a 4 mm noncompliant balloon.
Since July 2022, Mr. Ryder reports that he has been feeling well. Approximately 2 weeks ago he noticed the onset of waxing and waning substernal chest pressure on infrequent occasions. His pain became more persistent this morning and 911 was
called. His electrocardiogram was notable for anterior ST segment elevation and his STEMI alert was activated on arrival to [facility].
ACCESS: Right radial artery, 6 Micronesian sheath
HEMODYNAMICS (mmHg):
AO (s/d, m) : 128/78
LV (s/d) : 131/21
LVEDP : 30
CORONARY FINDINGS
Dominance: Right
LEFT MAIN: Normal
LEFT ANTERIOR DESCENDING: The LAD arises normally from the left main and runs in the anterior interventricular groove. There is a stent from the proximal to mid LAD that jails the first diagonal branch and a second stent overlapping and distal to
the more proximal LAD stent. The diagonal branch is large equivalent in size to the LAD with a 50% ostial narrowing. The mid LAD beyond the diagonal branch has diffuse 30% in-stent restenosis and focal 95% stenosis within the area of stent overlap
in the mid LAD. The LAD just beyond the stented segment has a 50% stenosis. The mid to distal LAD has luminal irregularities in the LAD tapers to a small caliber vessel as it approaches but does not wraparound the apex.
CIRCUMFLEX: The circumflex is a medium caliber nondominant vessel. OM1 arises very proximally from the circumflex running in a distribution typical for a ramus intermedius. OM1 is large and has minor irregularities. The mid to distal circumflex
terminates in a small distal obtuse marginal branch
RIGHT CORONARY: The right coronary artery is a dominant vessel with an anterior origin from the aorta. There is a long 30% mid RCA stenosis. There is a 30% stenosis in the distal RCA proximal to the previously stented segment and 70% stenosis just
beyond the distal RCA stent extending to the crux of the vessel. The PDA and posterolateral branches are widely patent
VENTRICULOGRAPHY: Left ventriculography was performed in GILES projection. The digital single-plane left ventricular ejection fraction is estimated at 40% with anterolateral and apical anterior hypokinesis as well as inferoapical hypokinesis
ANGIOPLASTY PROCEDURE DETAIL: Upon review of the diagnostic catheterization films the decision was made to proceed with percutaneous revascularization of the restenotic high-grade stenosis in the mid LAD beyond the large first diagonal branch.
Intravenous heparin was administered and the ACT was monitored throughout the procedure. Clopidogrel was discontinued several months ago and he received a 180 mg ticagrelor dose in the emergency department. The origin of the left main was
cannulated with a 6 Micronesian XB 3.5 guiding catheter and a long BMW guidewire was advanced into the large first diagonal branch while a short BMW guidewire was advanced distally into the LAD. Balloon predilation was performed using a 2.0 x 12 mm
Euphora balloon. A 3.0 x 26 mm Kaveh stent was then advanced over the guidewire and positioned just distal to the diagonal branch covering the area of stent overlap and extending beyond the stented segment of the mid LAD. The stent was implanted at
12 jenny. The patient experienced an increase in chest tightness following stent deployment in the LAD just beyond the stent was noted to be somewhat hazy. His symptoms and the angiographic findings continued after IV nitroglycerin and the decision
was made to implant a 2.75 x 12 mm [place] stent overlapping and distal to the initial stent. The entire stented segment was postdilated with a 3.0 Euphora noncompliant balloon with a nice angiographic result
RADIATION SUMMARY: Fluoro Time (min): 11.9, Dose (mGy): 1294, DAP (Gy.cm2) : 119.8
CONCLUSIONS
1. Acute anterior ST segment elevation myocardial infarction with high-grade stenosis in the mid LAD with an an area of prior stent overlap. Overlapping LAD stents were implanted with a 3.0 x 26 mm Kaveh stent implanted just distal to the first
diagonal branch and a second 2.75 x 12 mm Kaveh stent implanted at the distal edge due to haziness in the vessel and increased chest pain. The entire stented segment was postdilated with a 3 mm noncompliant balloon
2. Stenosis in the distal RCA beyond the previously stented segment angiographically estimated at 70%
3. Mild LV dysfunction with an estimated ejection fraction of 40% with anterolateral and apical anterior hypokinesis
RECOMMENDATIONS
1. Uninterrupted dual antiplatelet therapy for minimum of 12 months. May consider de-escalation of antiplatelet therapy from ticagrelor to clopidogrel in several weeks
2. Angiogram will be reviewed by Dr. Bender who can decide on ischemic guided evaluation of RCA with either invasive or noninvasive methodology
Copy to: Dr. Shahid Bender, Dr. Parish Marcos
--- NOTE | 2024-04-13 10:58 | PTCARENOTE ---
received pt from chemical lab supervisor. pt is aaox3. pt c/o 10/24 CP, 'better than before.' pt is sr on the monitor, hr in the 70s, vss. r radial site is CDI. pt educated on plan of care and pt verbalized understanding. pt visiting with family. call garnett within
reach.
[2024-04-13 11:41] LABS: TSH Reflex To Free T4 1.89 uIU/ml (0.47-4.68)
[2024-04-13] MEDS: LIPITOR 80 MG PO (17:02)
[2024-04-13] MEDS: LOVENOX 40 MG SC (17:02)
[2024-04-13] MEDS: ALPHAGAN P 0.1% EYE DROPS 1 DROP OPHTH ×2 (17:02→19:47)
--- NOTE | 2024-04-13 17:43 | PTCARENOTE ---
pt continues to be SR on the monitor, hr in the 80s, vss. pt c/o being SOB, 2LO2 NC applied. O2 is 98%. pt educated on plan of care and pt verbalized understanding. pt has be OOB with assistance and tolerating well. call garnett within reach.
--- NOTE | 2024-04-13 18:35 | PTCARENOTE ---
right radial band removed, dressing CDI. Slightly ecchymotic, pt denies pain. pt educated on not using/lifting, pt verbalized understanding. call garnett within reach.
--- NOTE | 2024-04-13 18:39 | W.PN.CD ---
Today's Communication / Plan
-
Continue medications discuss possible RCA intervention tomorrow
Impression / Plan
-
83-year-old with history of CAD status post stenting of the RCA in 2000 LAD in 2001 and CRISTÓBAL to the RCA in 2021. He is here with a STEMI and is status post LAD stenting. He has residual RCA distal stenosis.
STEMI status post LAD stenting
-Continue losartan atorvastatin aspirin Plavix
-Echocardiogram
-Hemoglobin A1c check
-Will discuss possible RCA intervention possibly this admit
Hypertension
-Continue losartan
Dyslipidemia
-Continue atorvastatin
GERD continue pantoprazole
Physical Exam
Vital Signs/Labs
Vital Signs
Temp Pulse Resp BP Pulse Ox
98.3 F 83 18 138/93 97
04/13/24 15:40 04/13/24 17:30 04/13/24 15:40 04/13/24 16:00 04/13/24 15:40
04/12/24 04/13/24 04/14/24
06:59 06:59 06:59
Actual Weight 207 lb 7.28 oz
04/13/24 08:40
04/13/24 08:40
PT 13.3 Sec (11.4-14.6) 04/13/24 08:40
INR 1.02 04/13/24 08:40
APTT 23.6 Sec (23.4-35.0) 04/13/24 08:40
Magnesium 1.8 mg/dl (1.6-2.3) 04/13/24 08:40
LAB Results
04/13/24 04/13/24 04/13/24
08:40 10:30 15:10
Troponin I 0.070 H* Cancelled 132.000 H* D
Physical Exam
Constitutional: No acute distress and Comfortable
EENT: Anicteric
Cardiovascular: Rhythm & rate is regular and Pedal edema is absent
Respiratory: Respiratory effort normal and Lungs clear to auscul.
GI: Soft
Neuro/Psych: AO x 3
Data Reviewed
-
Date of Service: April 13, 2024
EKG: Tracing Personally Visualized and interpreted
Labs: Labs Reviewed by me
--- NOTE | 2024-04-13 19:30 | PTCARENOTE ---
report received. aaox3. nsr. r radial band cdi echymosis noted to right wrist. pt c/o central 10/24 cp. produce team lead notified. tylenol ordered and min. care updated. will monitor.
[2024-04-13] MEDS: BRILINTA 90 MG PO (19:48)
[2024-04-13] MEDS: TYLENOL 650 MG PO (20:44)
[2024-04-13] MEDS: NON-FORMULARY ITEM 1 UNIT BOTH EYES (22:52)
[2024-04-13] MEDS: NON-FORMULARY ITEM 1 DROP BOTH EYES (22:52)
[2024-04-13] MEDS: ALPHAGAN P 0.15% EYE DROPS 1 DROP BOTH EYES (22:53)
[2024-04-14 03:10] VITALS: BP 116/78
[2024-04-14 03:40] LABS: Hematocrit 36.4 % (39.0-52.0); Hemoglobin 12.8 g/dL (13.0-18.0); Mean Corp Hgb Conc. 35.2 g/dL (33.0-37.0); Mean Corpuscular Hgb 32.9 pg (27.0-31.0); Mean Corpuscular Volume 93.6 fL (80.0-94.0); Mean Platelet Volume 9.5 fL (7.4-10.4); Platelet Count 209 10^3/uL (130-400); Red Blood Cell Count 3.89 10^6/uL (4.70-6.10); Red Cell Dist. Width 13.2 % (11.5-14.5); White Blood Cell Count 9.9 10^3/uL (4.8-10.8)
[2024-04-14 04:04] LABS: Blood Urea Nitrogen 24 mg/dl (9-20); Calcium 9.8 mg/dl (8.4-10.2); Carbon Dioxide 24 mmol/L (22-30); Chloride 107 mmol/L (98-107); Estimated Creatinine Clearance 58 ml/min; Glucose 118 mg/dl (70-99); HDL Cholesterol 32 mg/dl; LDL Cholesterol, Calculated 55 mg/dl; Potassium 4.1 mmol/L (3.5-5.1); Sodium 139 mmol/L (135-145); Total Cholesterol 138 mg/dl (50-199); Triglyceride 255 mg/dl (10-149); Very Low Density Lipoprotein 51 mg/dl (0-30); eGFR > 60.00
[2024-04-14] MEDS: SYNTHROID 150 MCG PO (05:31)
[2024-04-14] MEDS: LOW STRENGTH ASPIRIN 81 MG PO (07:29)
[2024-04-14 07:30] VITALS: BP 129/74
[2024-04-14] MEDS: BRILINTA 90 MG PO ×2 (07:30→19:59)
[2024-04-14] MEDS: PROTONIX 40 MG PO (07:31)
[2024-04-14] MEDS: TIMOPTIC 0.5% OPHTHALMIC SOLUTION 1 DROP BOTH EYES (07:31)
[2024-04-14] MEDS: COZAAR 50 MG PO (07:31)
[2024-04-14] MEDS: ALPHAGAN P 0.15% EYE DROPS 1 DROP BOTH EYES ×2 (07:31→20:01)
[2024-04-14] MEDS: REFRESH EYE DROPS (PF) 1 DROPS OPHTH (07:37)
--- NOTE | 2024-04-14 07:55 | W.PN.CD ---
Today's Communication / Plan
-
ambulate today in room
RCA PCI tomorrow
continue to monitor
Impression / Plan
-
83-year-old with history of CAD status post stenting of the RCA in 2000 LAD in 2001 and CRISTÓBAL to the RCA in 2021. He is here with a STEMI and is status post LAD stenting. He has residual RCA distal stenosis.
STEMI status post LAD stenting
-trop 132 peak
-Continue losartan atorvastatin aspirin Plavix
-Echocardiogram today
-Hemoglobin A1c 7.0
-RCA PCI tomorrow- discussed with pt who agrees
Hypertension
-Continue losartan
Dyslipidemia
- LDL 55, HDL 32
-Continue atorvastatin
DM
- A1c acceptable
GERD continue pantoprazole
Telem shows NO AFIB- there is some artifact and frequent APDs
Physical Exam
Vital Signs/Labs
Vital Signs
Temp Pulse Resp BP Pulse Ox
98.6 F 79 20 129/74 98
04/14/24 07:30 04/14/24 07:31 04/14/24 07:30 04/14/24 07:31 04/14/24 07:30
04/13/24 04/14/24 04/15/24
06:59 06:59 06:59
Actual Weight 207 lb 7.28 oz
04/14/24 03:18
04/14/24 03:18
PT 13.3 Sec (11.4-14.6) 04/13/24 08:40
INR 1.02 04/13/24 08:40
APTT 23.6 Sec (23.4-35.0) 04/13/24 08:40
Magnesium 1.8 mg/dl (1.6-2.3) 04/13/24 08:40
Triglycerides 255 mg/dl (10-149) H 04/14/24 03:18
LDL Cholesterol, Calc 55 mg/dl 04/14/24 03:18
VLDL Cholesterol, Calc 51 mg/dl (0-30) H 04/14/24 03:18
HDL Cholesterol 32 mg/dl 04/14/24 03:18
LAB Results
04/13/24 04/13/24 04/13/24
08:40 10:30 15:10
Troponin I 0.070 H* Cancelled 132.000 H* D
04/13/24
22:46
Troponin I 70.200 H* D
Physical Exam
Constitutional: No acute distress and Comfortable
EENT: Anicteric
Cardiovascular: Rhythm & rate is regular and Murmur/rub/gallop absent
Respiratory: Respiratory effort normal, Lungs clear to auscul. and Wheeze Absent
GI: Soft and Non tender
Neuro/Psych: AO x 3 and Motor deficits absent
Data Reviewed
-
Date of Service: April 14, 2024
[2024-04-14 09:15] LABS: ACT-LR - POC 163 Seconds (116-155)
--- NOTE | 2024-04-14 09:38 | PTCARENOTE ---
Pt received from warehouse worker 2nd shift RN. Ox3 and appropriate. Very particular with medications, went over with pt and questions answered. NSR with a 1� AVB. Initially assessed pt with 2L NC in place. Sat was 98%, O2 removed, sat now 95%. Pt using urinal
without difficulty. Gets up with a one person assist. R radial dressing intact with some mild swelling around site. Pt makes all needs known.
[2024-04-14 12:05] VITALS: BP 135/92
--- NOTE | 2024-04-14 13:27 | CM ---
Reviewed chart. Met with Mr. Ryder to review discharge plans. He states prior to admission he resides with his spouse in a spilt level home with two steps to enter. He states prior to admission he was independent with ambulation and adls. He
states he does not have any DME in the home. He states he has a prescription plan and uses [facility]. Medical work-up in progress. The discharge plan is to return home with his spouse when medically stable.
[2024-04-14 15:55] VITALS: BP 125/82
[2024-04-14] MEDS: LOVENOX 40 MG SC (18:00)
[2024-04-14] MEDS: LIPITOR 80 MG PO (18:00)
[2024-04-14 18:41] VITALS: BP 123/90
[2024-04-14] MEDS: MELATONIN 5 MG PO (22:15)
[2024-04-14] MEDS: NON-FORMULARY ITEM 1 UNIT BOTH EYES (22:15)
[2024-04-14] MEDS: NON-FORMULARY ITEM 1 DROP BOTH EYES (22:29)
[2024-04-14 22:36] VITALS: BP 117/73
[2024-04-15] VITALS (14 sets, daily range): BP systolic 106–136; BP diastolic 69–90; BMI 28.9
[2024-04-15] MEDS: SYNTHROID 150 MCG PO (04:00)
[2024-04-15] MEDS: TIMOPTIC 0.5% OPHTHALMIC SOLUTION 1 DROP BOTH EYES (08:14)
[2024-04-15] MEDS: ALPHAGAN P 0.15% EYE DROPS 1 DROP BOTH EYES ×2 (08:16→20:06)
[2024-04-15] MEDS: BRILINTA 90 MG PO ×2 (08:17→20:06)
[2024-04-15] MEDS: PROTONIX 40 MG PO (08:17)
[2024-04-15] MEDS: LOW STRENGTH ASPIRIN 81 MG PO (08:18)
[2024-04-15] MEDS: COZAAR 50 MG PO (08:18)
--- NOTE | 2024-04-15 11:00 | ITS.CL.ANGIO ---
Car Audio Installer - Angioplasty
Angioplasty
Procedure Report:
CORONARY ANGIOPLASTY REPORT
Date of Procedure: 04/15/2024
Referring: Tyson Bender MD
Indication: Completion of revascularization following anterior STEMI/LAD PCI on 04/13
PROCEDURE SUMMARY:
Successful stenting of 90% distal RCA stenosis with placement of 3.5 x 12 Xience callie point CRISTÓBAL
DESCRIPTION OF PROCEDURE: The patient suffered an anterior STEMI on April 13 treated with LAD stenting by Dr. Prasad. Peak troponin 132. He returns now for completion of revascularization with a 90% stenosis immediately distal to the distal RCA
stent placed in 2021. The stent itself is free of stenosis; however there is high-grade disease just distal to the stent and proximal to the takeoff of the large RPDA and continuation of the AV groove which supplies a large right posterolateral
system.
Access was obtained via the left radial artery. A 6 [place] 0.75 guide catheter was advanced to the right coronary ostium which was shown to have an anterior takeoff. This guide provided fantastic support. A short BMW wire was advanced into the
RCA but continued to select the acute marginal branch. A long Hi-Torque floppy wire with a J was advanced successfully into the distal RCA and across the lesion. The wire was positioned in the distal posterolateral branch. We then attempted
unsuccessfully to pass the BMW wire into the PDA for protection. Neither the ostium of the PDA nor the ostium of the AV groove branch had disease. We then implanted a 3.5 x 12 Xience callie point CRISTÓBAL and a distal overlapping fashion with the stent
from 2021 across the lesion and into the AV groove branch. The stent was deployed at 14 jenny then postdilated with a 3.5 x 8 NC trek to 17 jenny. The final angiographic result was outstanding with no residual stenosis and no compromise of the now
jailed PDA. There were no procedural complications.
ANTI-COAGULATION THERAPY
1: Heparin 6000 units
Closure Device Used: None-the procedure was performed via the left radial artery. Of note, the pulse on the right side which was used for the procedure 48 hours earlier is diminished.
Radiation (mGy): 411
DAP (cm2.Gy): 26.3
Fluoroscopy time: 6.3 minutes
CONCLUSIONS: Successful stenting of 90% distal RCA stenosis using 3.5 x 12 Xience callie point CRISTÓBAL with outstanding angiographic result. Continue DAPT x 12 months following recent anterior STEMI.
Copy to: Parish Marcos MD, Tyson Bender MD
Tyson Bender MD, [facility], [facility]
[2024-04-15 11:21] LABS: ACT-LR - POC > 397 Seconds (116-155)
--- NOTE | 2024-04-15 11:54 | PTCARENOTE ---
Pt with no c/o of chest pain or sob this am. Pt returned post cath at 1120. Left rad site WNL. Room air sat 95%.
[2024-04-15] MEDS: NSS 1000 IV (12:04)
[2024-04-15] MEDS: TOPROL XL 25 MG PO (12:09)
--- NOTE | 2024-04-15 12:27 | CM ---
Reviewed chart. Received consult to check on co-pay for Brilinta 90 mg po bid. His co-pay would be $108.91 a month. [facility] does not have it in stock, but they are ordering it today. Met with Mr. Ryder. He is agreeable to the co-pay. Placed
the one month free coupon in his red discharge folder. Medical work-up in progress. The discharge plan is to retrun home with his spouse when medically stable.
[2024-04-15] MEDS: LIPITOR 80 MG PO (17:09)
[2024-04-15] MEDS: LOVENOX 40 MG SC (20:07)
[2024-04-15] MEDS: NON-FORMULARY ITEM 1 DROP BOTH EYES (22:09)
[2024-04-15] MEDS: NON-FORMULARY ITEM 1 UNIT BOTH EYES (22:11)
--- NOTE | 2024-04-16 02:53 | PTCARENOTE ---
Received patient at change of shift resting in bed. Denies chest pain. VSS, NSR with first degree AV block and occasional PACs/PVCs on monitor. B/L radial sites dry and in tact. Patient educated on activity restrictions and verbalized
understanding. Call garnett within reach
[2024-04-16] MEDS: SYNTHROID 150 MCG PO (03:13)
[2024-04-16 03:20] VITALS: BP 119/80
--- NOTE | 2024-04-16 07:15 | W.PN.UPDATE ---
Update Note
Progress Note Update
Stable after RCA PCI /CRISTÓBAL x 1 to complete revascularization after anterior STEMI 04-13. CRISTÓBAL to mid LAD by Dr Prasad on 04-13
LDL 55
VSS
Cor RR no murmur
Lungs clear
Ext no edema/ R radial pulse trace, L radial pulse intact
Telem: SR VPDs
Labs Pending
ECG ASMI, PVCs
Plan- Home today. I encouraged cardiac rehab participation. He is not sure he will do this. Metoprolol / Losartan
DAPT x 12 mo
[2024-04-16 07:34] VITALS: BP 134/76
[2024-04-16] MEDS: TOPROL XL 25 MG PO (07:34)
[2024-04-16] MEDS: COZAAR 50 MG PO (07:34)
[2024-04-16] MEDS: BRILINTA 90 MG PO (07:34)
[2024-04-16] MEDS: TIMOPTIC 0.5% OPHTHALMIC SOLUTION 1 DROP BOTH EYES (07:34)
[2024-04-16] MEDS: LOW STRENGTH ASPIRIN 81 MG PO (07:34)
[2024-04-16] MEDS: PROTONIX 40 MG PO (07:34)
[2024-04-16 07:38] LABS: Hematocrit 35.6 % (39.0-52.0); Hemoglobin 12.3 g/dL (13.0-18.0); Mean Corp Hgb Conc. 34.6 g/dL (33.0-37.0); Mean Corpuscular Hgb 33.1 pg (27.0-31.0); Mean Corpuscular Volume 95.7 fL (80.0-94.0); Mean Platelet Volume 9.8 fL (7.4-10.4); Platelet Count 212 10^3/uL (130-400); Red Blood Cell Count 3.72 10^6/uL (4.70-6.10); Red Cell Dist. Width 13.1 % (11.5-14.5); White Blood Cell Count 8.9 10^3/uL (4.8-10.8)
[2024-04-16] MEDS: ALPHAGAN P 0.15% EYE DROPS 1 DROP BOTH EYES (07:38)
[2024-04-16 08:04] LABS: Blood Urea Nitrogen 22 mg/dl (9-20); Calcium 9.6 mg/dl (8.4-10.2); Carbon Dioxide 25 mmol/L (22-30); Chloride 106 mmol/L (98-107); Estimated Creatinine Clearance 50 ml/min; Glucose 130 mg/dl (70-99); Sodium 137 mmol/L (135-145); eGFR > 60.00
--- NOTE | 2024-04-16 11:01 | W.DS.TRANS ---
DC Summary - [employer]
-
Discharge Instructions:
Discharge Diagnosis/Procedures STEMI, s/p angioplasty and stent x2 to Left
Anterior Descending artery (04/13), RCA x1 (04/15)
Diet Low Cholesterol
Activity No strenuous activity
Additional Activity For 2 weeks
Driving Restrictions No driving for 24 hours
Bathing Restrictions OK to Shower
Other Services Cardiac Rehab
Instructions:
Stand-Alone Forms: DC Instructions- Cath/EP Lab
Changes to Home Medications: Yes
Discharge Medications:
DC Medications w/original date entered in [employer]
aspirin 81 mg tablet,delayed release 81 mg PO DAILY Blood clot prevention/tx 03/08/14
atorvastatin 40 mg tablet 80 mg PO QPM High cholesterol 03/08/14
bimatoprost 0.01 % eye drops (Lumigan) 1 drp BOTH EYES HS Eye condition 03/08/14
cholecalciferol (vitamin D3) 25 mcg (1,000 unit) capsule 1,000 unit PO DAILY Supplement 03/08/14
fish oil-dha-epa 1,200 mg-144 mg-216 mg capsule 2 ea PO DAILY Supplement 03/08/14
brimonidine 0.15 % eye drops (Alphagan P) 1 drp BOTH EYES BID Eye condition 11/14/17
ibuprofen 200 mg capsule (Advil Liqui-Gel) 200 mg PO Q6H PRN MILD PAIN 11/14/17
nitroglycerin 0.4 mg sublingual tablet 0.4 mg sublingual [id number] PRN chest pain 11/14/17
vit C 250 mg-vit E 90 mg-zinc 40 mg-copper 1 qz-qoznhg-lnsytz capsule (PreserVision AREDS-2) 1 ea PO DAILY Supplement 11/14/17
dextran 70-hypromellose 0.1 %-0.3 % eye drops (GenTeal Tears Mild) 1 drp ophthalmic (eye) .8/D PRN DRY EYES 08/03/22
levothyroxine 150 mcg tablet (Synthroid) 150 mcg PO DAILY Thyroid 08/03/22
netarsudil 0.02 % eye drops (Rhopressa) 1 drp BOTH EYES HS Eye condition 08/03/22
timolol maleate 0.5 % eye drops 1 drp BOTH EYES DAILY Eye condition 08/03/22
pantoprazole 40 mg tablet,delayed release 40 mg PO DAILY Gastrointestinal Issue 04/14/24
ticagrelor 90 mg tablet (Brilinta) 90 mg PO BID #60 tabs 04/15/24
losartan 50 mg tablet 50 mg PO DAILY #90 tabs 04/16/24
metoprolol succinate 25 mg tablet,extended release 24 hr 25 mg PO DAILY #90 tabs 04/16/24
Home Medication Changes
new to brilinta, metoprolol, increased losartan to 50
Pending Results: No
[2024-04-16 11:29] VITALS: BP 104/70
--- NOTE | 2024-04-16 11:56 | PTCARENOTE ---
Pt with no c/o this am. OOB ad carlos a in the room. Right and left rad cath sites clean and dry with no hematomas noted. Pt discharged to home with his . Discharge instructions given and reviewed with good understanding and all questions answered.
== END 2024-04-16 12:14 | disposition home or self-care (01) | DRG 322 ==
LOC: IVU 10:43
PROVIDERS: Internal Medicine Cardiovascular Disease; Internal Medicine Interventional Cardiology; Nurse Practitioner Adult Health; ADMITTING PHYSICIAN Internal Medicine Cardiovascular Disease; EMERGENCY PHYSICIAN Student in an Organized Health Care Education/Training Program
PROC: B2151ZZ Fluoroscopy of Left Heart using Low Osmolar Contrast (ICD-10-PCS; 2024-04-13)
PROC: 027035Z Dilation of Coronary Artery, One Artery with Two Drug-eluting Intraluminal Devices, Percutaneous Approach (ICD-10-PCS; 2024-04-13)
PROC: B2111ZZ Fluoroscopy of Multiple Coronary Arteries using Low Osmolar Contrast (ICD-10-PCS; 2024-04-13)
PROC: 4A023N7 Measurement of Cardiac Sampling and Pressure, Left Heart, Percutaneous Approach (ICD-10-PCS; 2024-04-13)
PROC: 027034Z Dilation of Coronary Artery, One Artery with Drug-eluting Intraluminal Device, Percutaneous Approach (ICD-10-PCS; 2024-04-15)
DX: I21.09 ST elevation (STEMI) myocardial infarction involving other coronary artery of anterior wall (principal); T82.855A Stenosis of coronary artery stent, initial encounter; I25.10 Atherosclerotic heart disease of native coronary artery without angina pectoris; I12.9 Hypertensive chronic kidney disease with stage 1 through stage 4 chronic kidney disease, or unspecified chronic kidney disease; N18.31 Chronic kidney disease, stage 3a; M19.90 Unspecified osteoarthritis, unspecified site; K21.9 Gastro-esophageal reflux disease without esophagitis; E78.00 Pure hypercholesterolemia, unspecified; E03.9 Hypothyroidism, unspecified; I34.0 Nonrheumatic mitral (valve) insufficiency; M85.89 Other specified disorders of bone density and structure, multiple sites; H40.9 Unspecified glaucoma; Y83.1 Surgical operation with implant of artificial internal device as the cause of abnormal reaction of the patient, or of later complication, without mention of misadventure at the time of the procedure; E11.22 Type 2 diabetes mellitus with diabetic chronic kidney disease; Z79.02 Long term (current) use of antithrombotics/antiplatelets; Z79.82 Long term (current) use of aspirin; Z79.899 Other long term (current) drug therapy; Z87.891 Personal history of nicotine dependence; Z95.5 Presence of coronary angioplasty implant and graft
CPT/HCPCS: 80048; 80053; 80061; 83036; 83735; 84443; 84484; 85025; 85027; 85347; 85610; 85730; 93005; 93306; 93458; 99285; C1725; C1769; C1874; C1887; C1894; C9600; C9606; Q9967

== ENCOUNTER → 2024-05-26 08:37 | Outpatient (REF) | payer MEDICARE, OTHER, SELFPAY ==
[2024-05-26 10:57] LABS: Glycohemoglobin (HgbA1c) 6.5 % (4.0-5.6)
[2024-05-26 11:13] LABS: ALT (SGPT) 23 U/L (0-50); AST (SGOT) 25 U/L (17-59); Albumin 4.1 g/dl (3.5-5.0); Alkaline Phosphatase 68 U/L (38-126); Blood Urea Nitrogen 28 mg/dl (9-20); Carbon Dioxide 26 mmol/L (22-30); Chloride 104 mmol/L (98-107); Glucose 146 mg/dl (70-99); Potassium 4.9 mmol/L (3.5-5.1); Sodium 139 mmol/L (135-145); Total Protein 6.5 g/dl (6.3-8.2); eGFR 55.19
[2024-05-26 11:29] LABS: TSH 1.06 uIU/ml (0.47-4.68)
[2024-05-26 12:11] LABS: Total Bilirubin 0.9 mg/dl (0.2-1.3)
== END ==
LOC: REG 08:37
PROVIDERS: ATTENDING PHYSICIAN Nurse Practitioner; FAMILY PHYSICIAN Family Medicine; REFERRING PHYSICIAN Internal Medicine Endocrinology, Diabetes & Metabolism
DX: E11.65 Type 2 diabetes mellitus with hyperglycemia (principal); E06.3 Autoimmune thyroiditis; I25.10 Atherosclerotic heart disease of native coronary artery without angina pectoris; I25.5 Ischemic cardiomyopathy
CPT/HCPCS: 36415; 80053; 83036; 84443

== ENCOUNTER → 2024-07-22 12:09 | Outpatient (REF) | payer MEDICARE, OTHER, SELFPAY | LOC: RCS 12:09 | PROVIDERS: ATTENDING PHYSICIAN Internal Medicine Cardiovascular Disease; FAMILY PHYSICIAN Family Medicine | DX: I25.5 Ischemic cardiomyopathy (principal) | CPT/HCPCS: 93308; 93321; 93325 ==

== ENCOUNTER → 2024-10-21 08:45 | Outpatient (REF) | payer MEDICARE, OTHER, SELFPAY ==
[2024-10-21 10:12] LABS: ALT (SGPT) 27 U/L (0-50); AST (SGOT) 27 U/L (17-59); Albumin 4.4 g/dl (3.5-5.0); Alkaline Phosphatase 76 U/L (38-126); Blood Urea Nitrogen 26 mg/dl (9-20); Carbon Dioxide 29 mmol/L (22-30); Chloride 102 mmol/L (98-107); Glucose 145 mg/dl (70-99); Potassium 4.5 mmol/L (3.5-5.1); Sodium 141 mmol/L (135-145); Total Bilirubin 0.9 mg/dl (0.2-1.3); Total Protein 7.1 g/dl (6.3-8.2); eGFR 50.18
[2024-10-21 10:38] LABS: PSA, Total - Screen 2.19 ng/ml (0.0-4.0); TSH 2.87 uIU/ml (0.47-4.68)
[2024-10-21 11:25] LABS: Glycohemoglobin (HgbA1c) 6.5 % (4.0-5.6)
== END ==
LOC: REG 08:45
PROVIDERS: ATTENDING PHYSICIAN Internal Medicine Endocrinology, Diabetes & Metabolism; FAMILY PHYSICIAN Family Medicine
DX: E11.65 Type 2 diabetes mellitus with hyperglycemia (principal); E06.3 Autoimmune thyroiditis; N40.1 Benign prostatic hyperplasia with lower urinary tract symptoms; Z12.5 Encounter for screening for malignant neoplasm of prostate
CPT/HCPCS: 36415; 80053; 83036; 84443; G0103

== ENCOUNTER → 2025-01-27 08:30 | Outpatient (REF) | payer MEDICARE, OTHER, SELFPAY ==
[2025-01-27 13:14] LABS: ALT (SGPT) 21 U/L (0-50); AST (SGOT) 24 U/L (17-59); Albumin 4.3 g/dl (3.5-5.0); Alkaline Phosphatase 81 U/L (38-126); Blood Urea Nitrogen 34 mg/dl (9-20); Carbon Dioxide 24 mmol/L (22-30); Chloride 108 mmol/L (98-107); Glucose 139 mg/dl (70-99); HDL Cholesterol 42 mg/dl; LDL Cholesterol, Calculated 94 mg/dl; Sodium 142 mmol/L (135-145); Total Bilirubin 0.8 mg/dl (0.2-1.3); Total Cholesterol 174 mg/dl (50-199); Total Protein 6.6 g/dl (6.3-8.2); Triglyceride 190 mg/dl (10-149); Very Low Density Lipoprotein 38 mg/dl (0-30); eGFR 46.19
== END ==
LOC: REG 08:30
PROVIDERS: ATTENDING PHYSICIAN Internal Medicine Cardiovascular Disease; FAMILY PHYSICIAN Family Medicine
DX: E78.00 Pure hypercholesterolemia, unspecified (principal)
CPT/HCPCS: 36415; 80053; 80061

== ENCOUNTER → 2025-04-27 07:58 | Outpatient (REF) | payer MEDICARE, OTHER, SELFPAY ==
[2025-04-27 09:13] LABS: ALT (SGPT) 25 U/L (0-50); AST (SGOT) 25 U/L (17-59); Albumin 4.0 g/dl (3.5-5.0); Alkaline Phosphatase 66 U/L (38-126); Blood Urea Nitrogen 33 mg/dl (9-20); Calcium 9.7 mg/dl (8.4-10.2); Carbon Dioxide 22 mmol/L (22-30); Chloride 112 mmol/L (98-107); Glucose 123 mg/dl (70-99); HDL Cholesterol 35 mg/dl; LDL Cholesterol, Calculated 48 mg/dl; Potassium 4.5 mmol/L (3.5-5.1); Sodium 140 mmol/L (135-145); Total Protein 6.6 g/dl (6.3-8.2); Very Low Density Lipoprotein 34 mg/dl (0-30); eGFR 54.85
[2025-04-27 09:21] LABS: Microalb - Urine Creatinine 77.700 mg/dl
[2025-04-27 09:48] LABS: Microalbumin, Random Urine 54.6 mg/dl (0.6-1.7); TSH 1.06 uIU/ml (0.47-4.68)
[2025-04-27 10:20] LABS: Glycohemoglobin (HgbA1c) 6.6 % (4.0-5.6)
== END ==
LOC: REG 07:58
PROVIDERS: ATTENDING PHYSICIAN Internal Medicine Endocrinology, Diabetes & Metabolism; FAMILY PHYSICIAN Family Medicine
DX: E11.65 Type 2 diabetes mellitus with hyperglycemia (principal); E06.3 Autoimmune thyroiditis
CPT/HCPCS: 36415; 80053; 80061; 82043; 82570; 83036; 84443